=== PATIENT | male | born 1985 | race Caucasian/White ===

== ENCOUNTER 2017-03-02 16:46 | Emergency (ER) | payer BC, MEDICAID ==
[2017-03-02 18:28] VITALS: BP 121/77
--- NOTE | 2017-03-02 19:16 | UC ---
Lower Extremity/Ankle HPI - HPI Summary HPI Summary: Left knee pain after fall. There is left knee swelling as well. There is pain with movement and palpation. They were concerned about obstruction but he has not had vomiting and he has had a small BM. - History of Current Complaint Chief Complaint: UCLowerExtremity Stated Complaint: LEFT KNEE INJURY Time Seen by Provider: 03/02/17 18:18 Hx Obtained From: Patient, Family/Urology Physician Onset/Duration: Sudden Onset, Lasting Hours Severity Initially: Severe Severity Currently: Severe Aggravating Factor(s): Standing, Ambulation Alleviating Factor(s): Rest, Elevation Able to Bear Weight: No - Risk Factors Gout Risk Factors: Negative - Allergies/Home Medications Allergies/Adverse Reactions: Allergies Allergy/AdvReac Type Severity Reaction Status Date / Time Hydrocortisone Allergy skin Verified 03/02/17 18:17 [From Neomycin and Polymyxin irritation B and Hydroc] Neomycin Allergy skin Verified 03/02/17 18:17 [From Neomycin and Polymyxin irritation B and Hydroc] Polymyxin B Allergy skin Verified 03/02/17 18:17 [From Neomycin and Polymyxin irritation B and Hydroc] Propylene Glycol Allergy skin Verified 03/02/17 18:17 [From Neomycin and Polymyxin irritation B and Hydroc] PMH/Surg Hx/FS Hx/Imm Hx Previously Healthy: No - MR. Other History Of: Negative For: HIV - Surgical History Surgical History: Yes Surgery Procedure, Year, and Place: club feet, back surgery, stomach & groin hernias, appedectomy. SCOLIOSIS OPERATION, WITH RODS. - Family History Known Family History: Positive: None - Social History Alcohol Use: None Substance Use Type: None Smoking Status (MU): Never Smoked Tobacco Have You Smoked in the Last Year: No Review of Systems Musculoskeletal: Arthralgia All Other Systems Reviewed And Are Negative: Yes Physical Exam Triage Information Reviewed: Yes Appearance: Well-Nourished Vital Signs: Initial Vital Signs Temp 98.5 F 03/02/17 18:18 Pulse 106 03/02/17 18:18 Resp 18 03/02/17 18:18 BP 121/77 03/02/17 18:18 Pulse Ox 99 03/02/17 18:18 Vital Signs Reviewed: Yes Eyes: Positive: Conjunctiva Clear ENT: Positive: Normal ENT inspection Neck: Positive: Supple, Nontender, No Lymphadenopathy Respiratory: Positive: Chest non-tender, Lungs clear, Normal breath sounds, No respiratory distress, No accessory muscle use. Negative: Respiratory distress Cardiovascular: Positive: RRR, No Murmur, Pulses Normal Abdomen Description: Positive: Nontender, No Organomegaly, Soft. Negative: Distended, Guarding Bowel Sounds: Positive: Present Musculoskeletal Exam: Other - Left knee effusion. There is no redness. No laxity with valgus and varus stress. Neg lochmans. There is diffuse anterior tenderness. Neurological: Positive: Alert. Negative: Lethargic Psychological: Positive: Normal Response To Family Skin: Negative: rashes Procedures - Splinting Pre-Made Type: knee immobilizer Pre-Proc Neuro Vasc Exam: normal Post-Proc Neuro Vasc Exam: normal Lower Extremity Course/Dx - Course Course Of Treatment: patellar fracture discussed with family. They have seen Dr. Simms in the past and would like to f/u with him again. We have placed him in a knee immobilizer. They have been instructed on non wt bearing. - Differential Dx/Diagnosis Provider Diagnoses: left acute patellar fracture. Discharge - Discharge Plan Condition: Good Disposition: HOME Prescriptions: Acetaminop/Codeine 30 MG TAB* [Tylenol/Codeine 30 MG TAB*] 1 tab PO Q8H PRN #20 tab MDD 3 PRN Reason: Pain Patient Education Materials: Leg Fracture (ED) Referrals: Lilia Lunsford [Primary Care Provider] - Adolfo Ennis MD [Medical Doctor] - Additional Instructions: Knee immobilizer. Follow up with orthopedics for further treatment.
--- NOTE | 2017-03-02 19:32 | RAD ---
HISTORY: Left knee pain and swelling, trauma COMPARISONS: None VIEWS: 2, Frontal and lateral views of the left knee FINDINGS: BONE DENSITY: There is diffuse osteopenia. BONES: There is a transverse nondisplaced fracture of the patella. JOINTS: There is no arthropathy. ALIGNMENT: There is no dislocation. SOFT TISSUES: Unremarkable. OTHER FINDINGS: None. IMPRESSION: TRANSVERSE NONDISPLACED PATELLAR FRACTURE
--- NOTE | 2017-03-03 15:14 | UC ---
Progress - Progress Note Progress Note: mother is requesting a Rx for wheelchair pt. is handicap with foot injury , cannot use crutches will write a Rx for Wheelchair
== END 2017-03-02 19:40 | disposition home or self-care (01) ==
LOC: UCCORT 16:46
DX: S82.002A Unspecified fracture of left patella, initial encounter for closed fracture (principal); Z88.8 Allergy status to other drugs, medicaments and biological substances; W19.XXXA Unspecified fall, initial encounter; Y92.9 Unspecified place or not applicable; Z88.1 Allergy status to other antibiotic agents
CPT/HCPCS: 99211; G0463

== ENCOUNTER 2017-03-13 16:36 | Emergency (ER) | payer BC, MEDICAID ==
[2017-03-13 19:31] VITALS: BP 125/80
--- NOTE | 2017-03-13 19:45 | UC ---
Skin Complaint HPI - HPI Summary HPI Summary: Found sore on left ankle over the achilles. Is wearing a leg brace for patellar fracture. - History of Current Complaint Chief Complaint: UCLowerExtremity Time Seen by Provider: 03/13/17 19:39 Stated Complaint: SORE ON LEFT ANKLE Hx Obtained From: Patient, Family/Choir Member Onset/Duration: Sudden Onset - just found last night, but seemed to be uncomfortable on tuesday. Onset Severity: Mild Current Severity: Mild Location: Discrete - left posterior ankle. Aggravating Factor(s): Touch Alleviating Factor(s): Nothing Associated Signs & Symptoms: Positive: Tenderness. Negative: Diaphoresis, Pallor, Fever, Chills, Red Streaks - Allergy/Home Medications Allergies/Adverse Reactions: Allergies Allergy/AdvReac Type Severity Reaction Status Date / Time Hydrocortisone Allergy skin Verified 03/13/17 19:31 [From Neomycin and Polymyxin irritation B and Hydroc] Neomycin Allergy skin Verified 03/13/17 19:31 [From Neomycin and Polymyxin irritation B and Hydroc] Polymyxin B Allergy skin Verified 03/13/17 19:31 [From Neomycin and Polymyxin irritation B and Hydroc] Propylene Glycol Allergy skin Verified 03/13/17 19:31 [From Neomycin and Polymyxin irritation B and Hydroc] Review of Systems Musculoskeletal: Arthralgia - left knee Is Patient Immunocompromised?: No All Other Systems Reviewed And Are Negative: Yes PMH/Surg Hx/FS Hx/Imm Hx - Additional Past Medical History Additional PMH: Has genetic disability, MR. Other History Of: Negative For: HIV - Surgical History Surgical History: Yes Surgery Procedure, Year, and Place: club feet, back surgery, stomach & groin hernias, appedectomy. SCOLIOSIS OPERATION, WITH RODS. - Family History Known Family History: Positive: Diabetes - Social History Occupation: Disabled Lives: With Family Alcohol Use: None Substance Use Type: None Smoking Status (MU): Never Smoked Tobacco Have You Smoked in the Last Year: No Physical Exam Triage Information Reviewed: Yes Appearance: Well-Appearing, No Pain Distress, Well-Nourished Vital Signs: Initial Vital Signs Temp 97.8 F 03/13/17 19:27 Pulse 112 03/13/17 19:27 Resp 14 03/13/17 19:27 BP 125/80 03/13/17 19:27 Pulse Ox 100 03/13/17 19:27 Vital Signs Reviewed: Yes Eyes: Positive: Conjunctiva Clear Neck exam: Normal Respiratory Exam: Normal Cardiovascular Exam: Normal Musculoskeletal: Positive: ROM Limited @ - left knee/ ankle., Edema @ - trace pretibial on the left. Neurological Exam: Normal Psychological: Positive: Normal Response To Family Skin: Positive: Other - sore on the left achilles tendon 3x1 cm with normal healing redness and induration. Course/Dx - Course Course Of Treatment: Due to abrasion from knee immobilizer - Differential Diagnoses - Skin Complaint Differential Diagnoses: Cellulitis, Impetigo, Other - open wound left lower leg - Diagnoses Provider Diagnoses: Open wound left lower leg Discharge - Discharge Plan Condition: Stable Disposition: HOME Patient Education Materials: Abrasion (ED) Referrals: Lilia Lunsford [Primary Care Provider] - Additional Instructions: Please use antibiotic ointment twice a day with telfa. Use the matthieu wrap to cushion the area.
== END 2017-03-13 19:56 | disposition home or self-care (01) ==
LOC: UCCORT 16:36
DX: S91.002A Unspecified open wound, left ankle, initial encounter (principal); X58.XXXA Exposure to other specified factors, initial encounter; Y93.9 Activity, unspecified; Y92.9 Unspecified place or not applicable
CPT/HCPCS: 99211; G0463

== ENCOUNTER 2017-10-17 16:56 | Emergency (ER) | payer BC, MEDICAID ==
[2017-10-17 17:41] VITALS: BP 104/75
--- NOTE | 2017-10-17 18:37 | UC ---
Throat Pain/Nasal Jose Luis HPI - HPI Summary HPI Summary: 32 yo male with one week hx of nasal congestion/sinus pressure and pain felt feverish no cough frontal FARRIS was incontent of urine once no dysuria has CP - History of Current Complaint Chief Complaint: UCGeneralIllness Stated Complaint: SINUS AND URINARY COMPLAINTS Time Seen by Provider: 10/17/17 18:18 Hx Obtained From: Patient, Family/Closing Supervisor - mom Onset/Duration: Gradual Onset, Lasting Days Severity: Mild Pain Intensity: 4 Pain Scale Used: 0-10 Numeric Cough: None Associated Signs & Symptoms: Positive: Sinus Discomfort, Nasal Discharge - Allergies/Home Medications Allergies/Adverse Reactions: Allergies Allergy/AdvReac Type Severity Reaction Status Date / Time hydrocortisone Allergy See Comment Verified 10/17/17 17:35 neomycin Allergy skin Verified 10/17/17 17:35 irritation polymyxin B Allergy skin Verified 10/17/17 17:35 irritation propylene glycol Allergy skin Verified 10/17/17 17:35 irritation Home Medications: Home Medications Acetaminophen [Tylenol Extra Strength] 1,000 mg PO Q6H PRN 10/17/17 [History Confirmed 10/17/17] PMH/Surg Hx/FS Hx/Imm Hx Previously Healthy: Yes Respiratory History: Pneumonia - aspiration Other History Of: Negative For: HIV - Surgical History Surgical History: Yes Surgery Procedure, Year, and Place: club feet, back surgery, stomach & groin hernias, appedectomy. SCOLIOSIS OPERATION, WITH RODS. - Family History Known Family History: Positive: Diabetes - Social History Alcohol Use: None Substance Use Type: None Smoking Status (MU): Never Smoked Tobacco Have You Smoked in the Last Year: No Review of Systems Constitutional: Negative Skin: Negative Eyes: Negative ENT: Nasal Discharge, Sinus Congestion, Sinus Pain/Tenderness Respiratory: Negative Cardiovascular: Negative Gastrointestinal: Negative Genitourinary: Negative Motor: Negative Neurovascular: Negative Musculoskeletal: Negative Neurological: Headache Psychological: Negative Is Patient Immunocompromised?: No All Other Systems Reviewed And Are Negative: Yes Physical Exam Triage Information Reviewed: Yes Appearance: Well-Appearing, No Pain Distress, Well-Nourished Vital Signs: Initial Vital Signs Temp 98.5 F 10/17/17 17:37 Pulse 94 10/17/17 17:37 Resp 20 10/17/17 17:37 BP 104/75 10/17/17 17:37 Pulse Ox 97 10/17/17 17:37 Vital Signs Reviewed: Yes Eyes: Positive: Conjunctiva Clear ENT: Positive: Nasal congestion, Nasal drainage, TMs normal, Sinus tenderness, Uvula midline, Other - skin below nose and around nares red and raw. Negative: Tonsillar swelling, Tonsillar exudate, Trismus, Muffled voice, Hoarse voice Neck: Positive: Supple Respiratory: Positive: Lungs clear, Normal breath sounds, No respiratory distress Cardiovascular: Positive: RRR, No Murmur Musculoskeletal: Positive: No Edema, Other: - contracture Neurological: Positive: Alert Throat Pain/Nasal Course/Dx - Differential Dx/Diagnosis Provider Diagnoses: acute sinusitis Discharge - Sign-Out/Discharge Documenting (check all that apply): Discharge/Admit/Transfer - Discharge Plan Condition: Stable Disposition: HOME Prescriptions: Amoxicillin PO (*) [Amoxicillin 875 MG (*)] 875 mg PO BID #20 tab Mupirocin 2% OINT* [Bactroban 2 % Oint*] 1 applic TOPICAL TID #1 tube Patient Education Materials: Sinusitis (ED) Referrals: Lilia Lunsford [Primary Care Provider] - 3 Days (if not better) Additional Instructions: saline nasal spray - 2 sprays each nostril 2 x day - Billing Disposition and Condition Condition: STABLE Disposition: Home
== END 2017-10-17 19:08 | disposition home or self-care (01) ==
LOC: UCCORT 16:56
DX: G80.9 Cerebral palsy, unspecified (principal); Z88.8 Allergy status to other drugs, medicaments and biological substances; J01.90 Acute sinusitis, unspecified
CPT/HCPCS: 81003; 87086; 99212; G0463

== ENCOUNTER 2018-07-26 17:25 | Emergency (ER) | payer BC, MEDICAID ==
[2018-07-26 18:50] VITALS: BP 106/70
[2018-07-26 19:12] LABS: Influenza A Molecular NEGATIVE (Negative); Influenza B Molecular NEGATIVE (Negative)
--- NOTE | 2018-07-26 19:34 | UC ---
Respiratory Complaint HPI - HPI Summary HPI Summary: 32 yo male with 4-5 day hx of su, runny nose, cough and anorexia no n/v/d no abd pain headache was the worse symptoms days 1 and 2 runny nose and cough the worse past 2-3 days - History of Current Complaint Chief Complaint: UCRespiratory Stated Complaint: HEADACHE,LOSS OF APPETITE,CONGESTION Time Seen by Provider: 07/26/18 19:01 Hx Obtained From: Patient Onset/Duration: Sudden Onset, Lasting Days Timing: Constant Severity Initially: Severe Severity Currently: Mild Pain Intensity: 4 Pain Scale Used: 0-10 Numeric Character: Cough: Nonproductive Aggravating Factors: Nothing Associated Signs And Symptoms: Positive: URI, Nasal Congestion - Allergies/Home Medications Allergies/Adverse Reactions: Allergies Allergy/AdvReac Type Severity Reaction Status Date / Time hydrocortisone Allergy See Comment Verified 07/26/18 18:40 neomycin Allergy skin Verified 07/26/18 18:40 irritation polymyxin B Allergy skin Verified 07/26/18 18:40 irritation Home Medications: Home Medications Ibuprofen TAB* [Motrin TAB* 600 MG] 600 mg PO Q6H PRN 07/26/18 [History Confirmed 07/26/18] PMH/Surg Hx/FS Hx/Imm Hx 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 SCOLIOSIS OPERATION, WITH RODS. - Family History Known Family History: Positive: Diabetes - Social History Alcohol Use: None Substance Use Type: None Smoking Status (MU): Never Smoked Tobacco Have You Smoked in the Last Year: No Review of Systems All Other Systems Reviewed And Are Negative: Yes Constitutional: Positive: Negative Skin: Positive: Negative Eyes: Positive: Negative ENT: Positive: Nasal Discharge Respiratory: Positive: Cough Cardiovascular: Positive: Negative Gastrointestinal: Positive: Other - anorexia Genitourinary: Positive: Negative Motor: Positive: Negative Neurovascular: Positive: Negative Musculoskeletal: Positive: Other: - multiple congenital anomalies/short stature Neurological: Positive: Headache Psychological: Positive: Negative Physical Exam Triage Information Reviewed: Yes Appearance: Well-Appearing - alert/reading when I entered room, very talkative and friendly Vital Signs: Initial Vital Signs Temp 98.4 F 07/26/18 18:41 Pulse 114 07/26/18 18:41 Resp 20 07/26/18 18:41 BP 106/70 07/26/18 18:41 Pulse Ox 98 07/26/18 18:41 Eye Exam: Normal ENT Exam: Normal ENT: Positive: Hearing grossly normal, Nasal congestion, Nasal drainage, TMs normal, Uvula midline. Negative: Tonsillar swelling, Tonsillar exudate, Trismus , Muffled voice, Hoarse voice, Dental tenderness, Sinus tenderness Dental Exam: Normal Neck: Positive: Supple Respiratory: Positive: Lungs clear, Normal breath sounds, No respiratory distress, No accessory muscle use Cardiovascular: Positive: RRR, No Murmur Abdomen Description: Positive: Nontender, No Organomegaly, Soft, Other: - midline surgical scar. Negative: CVA Tenderness (R), CVA Tenderness (L) Musculoskeletal: Positive: Other: - contractures and congenital anomalies Neurological: Positive: Alert Psychological: Positive: Normal Response To Family Skin: Negative: Rashes Respiratory Course/Dx - Course Course Of Treatment: UA : SG >1.030 +1 ketones, influenza (-) - Differential Dx/Diagnosis Provider Diagnosis: Viral syndrome Discharge - Sign-Out/Discharge Documenting (check all that apply): Patient Departure All imaging exams completed and their final reports reviewed: No Studies - Discharge Plan Condition: Stable Disposition: HOME Patient Education Materials: Viral Syndrome (ED) Referrals: Lilia Lunsford [Primary Care Provider] - 2 Days Additional Instructions: rest fluids tylenol recheck for new or worsening symptoms - Billing Disposition and Condition Condition: STABLE Disposition: Home
== END 2018-07-26 19:39 | disposition home or self-care (01) ==
LOC: UCCORT 17:25
DX: B34.9 Viral infection, unspecified (principal); R05 Cough; R51 Headache; R09.89 Other specified symptoms and signs involving the circulatory and respiratory systems; R63.0 Anorexia; R62.52 Short stature (child); Z88.8 Allergy status to other drugs, medicaments and biological substances; Z88.1 Allergy status to other antibiotic agents
CPT/HCPCS: 81003; 99211; G0463

== ENCOUNTER 2019-01-29 17:28 | Emergency (ER) | payer BC, MEDICAID ==
[2019-01-29 18:26] VITALS: BP 90/56
--- NOTE | 2019-01-29 19:00 | UC ---
Throat Pain/Nasal Jose Luis HPI - HPI Summary HPI Summary: 33-year-old male comes in with a chief complaint of more than 10 days of upper respiratory tract infection symptoms. He has had rhinorrhea he's had a headache. He's had a cough and chest congestion. He's had intermittent diarrhea. No fevers measured recently. - History of Current Complaint Chief Complaint: UCGeneralIllness Stated Complaint: HEADACHE, DIARRHEA, SORE THROAT Time Seen by Provider: 01/29/19 18:40 Pain Intensity: 0 - Allergies/Home Medications Allergies/Adverse Reactions: Allergies Allergy/AdvReac Type Severity Reaction Status Date / Time hydrocortisone Allergy See Comment Verified 01/29/19 18:26 neomycin Allergy skin Verified 01/29/19 18:26 irritation polymyxin B Allergy skin Verified 01/29/19 18:26 irritation PMH/Surg Hx/FS Hx/Imm Hx Previously Healthy: Yes Other History Of: Negative For: HIV - Surgical History Surgical History: Yes Surgery Procedure, Year, and Place: club feet, back surgery, stomach & groin hernias, appedectomy. SCOLIOSIS OPERATION, WITH RODS. - Family History Known Family History: Positive: Diabetes - Social History Alcohol Use: None Substance Use Type: None Smoking Status (MU): Never Smoked Tobacco Have You Smoked in the Last Year: No Review of Systems All Other Systems Reviewed And Are Negative: Yes Constitutional: Positive: Other - SEE HPI Skin: Positive: Negative Eyes: Positive: Negative ENT: Positive: Nasal Discharge, Sinus Congestion Respiratory: Positive: Cough, Other - SEE HPI Cardiovascular: Positive: Negative Gastrointestinal: Positive: Diarrhea Genitourinary: Positive: Negative Motor: Positive: Negative Neurovascular: Positive: Negative Musculoskeletal: Positive: Negative Neurological: Positive: Headache Psychological: Positive: Negative Is Patient Immunocompromised?: No Physical Exam Triage Information Reviewed: Yes Appearance: No Pain Distress, Well-Nourished, Ill-Appearing - MILD Vital Signs: Initial Vital Signs Temp 98.7 F 01/29/19 18:22 Pulse 98 01/29/19 18:22 Resp 16 01/29/19 18:22 BP 90/56 01/29/19 18:22 Pulse Ox 97 01/29/19 18:22 Vital Signs Reviewed: Yes Eye Exam: Normal Eyes: Positive: Conjunctiva Clear ENT: Positive: Pharyngeal erythema, Nasal congestion, Nasal drainage, TMs normal Neck: Positive: Supple Respiratory: Positive: Lungs clear, Normal breath sounds, No respiratory distress Cardiovascular: Positive: RRR Abdomen Description: Positive: Soft Bowel Sounds: Positive: Present Musculoskeletal: Positive: Strength Intact Neurological: Positive: Alert Psychological: Positive: Normal Response To Family Skin Exam: Normal Throat Pain/Nasal Course/Dx - Course Course Of Treatment: Patient does have developmental delays which did make interpretation of the symptoms so a bit more difficult. His mother is here and very helpful with conversation. Overall he's had upper respiratory tract infection symptoms for greater than 10 days and is not improving. His potential for a sinus infection bronchitis and also does aspiration on occasion as he has difficulty handling his secretions. Lungs are clear at this time we discussed the chest x-ray because lungs are clear we did not do a chest x-ray is evening. We'll start with Augmentin 805 mg's by mouth twice a day and he lives with his mother who will keep a close eye on him and get him reevaluated if these not improving or is worse. - Differential Dx/Diagnosis Provider Diagnosis: Bronchitis Discharge ED - Sign-Out/Discharge Documenting (check all that apply): Patient Departure All imaging exams completed and their final reports reviewed: No Studies - Discharge Plan Condition: Stable Disposition: HOME Prescriptions: Amoxicillin/Clavulanate TAB* [Augmentin TAB 875*] 875 mg PO BID #20 tab Patient Education Materials: Acute Bronchitis (ED) Referrals: Lilia Lunsford [Primary Care Provider] - Additional Instructions: FOLLOW UP WITH YOUR DOCTOR IF NOT COMPLETELY IMPROVED. GO TO THE EMERGENCY DEPARTMENT IF WORSE OR ANY QUESTIONS OR CONCERNS. - Billing Disposition and Condition Condition: STABLE Disposition: Home
== END 2019-01-29 19:08 | disposition home or self-care (01) ==
LOC: UCCORT 17:28
DX: J40 Bronchitis, not specified as acute or chronic (principal); Z88.8 Allergy status to other drugs, medicaments and biological substances; Z88.1 Allergy status to other antibiotic agents
CPT/HCPCS: 99212; G0463